=== PATIENT | male | born 1985 | race African-American/Black ===

== ENCOUNTER 2025-08-04 06:25 | Day surgery (SDC) | payer OTHER ==
[2025-07-31 13:37] VITALS: BMI 31.5
[2025-08-04 06:21] VITALS: RESP 18
[2025-08-04] MEDS ORDERED: MIDAZOLAM HCL 2 MG/2 ML SINGLE DOSE VIAL ONE (07:57)
[2025-08-04 10:10] VITALS: BP 124/81; PULSE 78; TEMP 97.8
== END 2025-08-04 10:05 | disposition home or self-care (01) ==
LOC: JASU-SURG 06:25
PROVIDERS: ATTEND Urology
PROC: 0TF4XZZ Fragmentation in Left Kidney Pelvis, External Approach (ICD-10-PCS; principal; 2025-08-04 07:43)
DX: N20.0 Calculus of kidney (principal)
CPT/HCPCS: 82962